=== PATIENT | male | born 2000 | race Caucasian/White ===

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

== ENCOUNTER 2023-01-29 20:32 | Emergency (ER) | payer OTHER ==
[~2023-01-29] VITALS: Ht 182.8 cm; Wt 52.2 kg
[~2023-01-29 20:32] MED LIST changes: +OMNICEF300 MG PO
[2023-01-29 20:36] VITALS: BP 123/106
== END 2023-01-29 22:49 | disposition home or self-care (01) ==
LOC: ED 20:32
DX: S00.81XA Abrasion of other part of head, initial encounter (principal); S09.90XA Unspecified injury of head, initial encounter; V49.59XA Passenger injured in collision with other motor vehicles in traffic accident, initial encounter; R68.84 Jaw pain; Y93.89 Activity, other specified; Y92.410 Unspecified street and highway as the place of occurrence of the external cause; Y99.8 Other external cause status

== ENCOUNTER 2023-09-03 09:38 | Emergency (ER) | payer OTHER ==
[~2023-09-03] VITALS: Ht 180.3 cm; Wt 49.9 kg
[2023-09-03 09:47] VITALS: BP 127/83
[2023-09-03] MEDS ORDERED: DEBROX15 ML OT (09:58)
[2023-09-03] MEDS ORDERED: CIPROFLOXACIN H10 ML OPH (09:58)
== END 2023-09-03 10:18 | disposition home or self-care (01) ==
LOC: ED 09:38
DX: H10.89 Other conjunctivitis (principal); H61.22 Impacted cerumen, left ear

== ENCOUNTER 2024-12-01 17:45 | Emergency (ER) | payer OTHER ==
[~2024-12-01] VITALS: Ht 180.3 cm; Wt 49.9 kg
[~2024-12-01 17:45] MED LIST changes: +CIPROFLOXACIN H10 ML OPH; +DEBROX15 ML OT
[2024-12-01 17:58] VITALS: BP 111/84
[2024-12-01] MEDS ORDERED: VIBRAMYCIN100 MG PO (18:36)
== END 2024-12-01 18:46 | disposition home or self-care (01) ==
LOC: ED 17:45
DX: A26.0 Cutaneous erysipeloid (principal); Z79.899 Other long term (current) drug therapy